=== PATIENT | female | born 1995 | race Caucasian/White ===

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

== ENCOUNTER 2018-08-29 14:24 | Emergency (ER) | payer SELFPAY ==
[~2018-08-29] VITALS: Wt 65.8 kg
[2018-08-29 14:25] VITALS: BP 119/64
[2018-08-29] MEDS ORDERED: PRENATAL VITAM1 EAC4 PO (14:52)
== END 2018-08-29 15:03 | disposition home or self-care (01) ==
LOC: ED 14:24
DX: Z32.01 Encounter for pregnancy test, result positive (principal); N91.1 Secondary amenorrhea; F17.200 Nicotine dependence, unspecified, uncomplicated; Z79.899 Other long term (current) drug therapy